=== PATIENT | female | born 1945 | race Caucasian/White ===

== ENCOUNTER → 2017-05-15 | Outpatient (CLI) | payer OTHER | END | disposition home or self-care (01) | LOC: MAMO-SONO 10:37 | DX: Z12.31 Encounter for screening mammogram for malignant neoplasm of breast (principal); Z87.898 Personal history of other specified conditions; N64.4 Mastodynia ==

== ENCOUNTER 2018-05-18 09:18 | Outpatient (CLI) | payer OTHER | END 2018-05-18 09:32 | disposition home or self-care (01) | LOC: MAMO-SONO 09:18 | DX: Z12.31 Encounter for screening mammogram for malignant neoplasm of breast (principal); Z87.898 Personal history of other specified conditions; N64.4 Mastodynia ==

== ENCOUNTER 2018-05-28 10:56 | Outpatient (CLI) | payer OTHER | END 2018-05-28 12:00 | disposition home or self-care (01) | LOC: NUCLEAR 10:56 | DX: M85.80 Other specified disorders of bone density and structure, unspecified site (principal); M81.0 Age-related osteoporosis without current pathological fracture ==

== ENCOUNTER 2019-06-04 08:45 | Outpatient (CLI) | payer OTHER | END 2019-06-04 08:58 | disposition home or self-care (01) | LOC: MAMO-SONO 08:45 | DX: Z12.31 Encounter for screening mammogram for malignant neoplasm of breast (principal); Z12.39 Encounter for other screening for malignant neoplasm of breast ==

== ENCOUNTER → 2020-06-08 | Outpatient (CLI) | payer OTHER | END | disposition home or self-care (01) | LOC: MAMO-SONO 10:15 | DX: Z12.31 Encounter for screening mammogram for malignant neoplasm of breast (principal); N64.59 Other signs and symptoms in breast; N64.4 Mastodynia ==

== ENCOUNTER 2020-07-11 06:11 | Emergency (ER) | payer OTHER ==
[~2020-07-11] VITALS: Ht 160 cm; Wt 76.2 kg
[2020-07-11] MEDS ORDERED: BENAZEPRIL 10 MG (06:48)
== END 2020-07-11 14:54 | disposition home or self-care (01) ==
LOC: ER 06:11
DX: B34.9 Viral infection, unspecified (principal); M50.323 Other cervical disc degeneration at C6-C7 level; R53.1 Weakness; Z03.818 Encounter for observation for suspected exposure to other biological agents ruled out

== ENCOUNTER → 2020-08-05 | Outpatient (CLI) | payer OTHER ==
[~2020-08-05] MED LIST: BENAZEPRIL 10 MG
== END | disposition home or self-care (01) ==
LOC: RAD 11:44
PROVIDERS: ATTEND Urology
DX: M25.511 Pain in right shoulder (principal); M25.512 Pain in left shoulder

== ENCOUNTER 2020-12-10 13:07 | Outpatient (CLI) | payer OTHER | END 2020-12-10 13:08 | disposition home or self-care (01) | LOC: NUCLEAR 13:07 | PROVIDERS: ATTEND Internal Medicine Rheumatology | DX: M81.0 Age-related osteoporosis without current pathological fracture (principal) ==

== ENCOUNTER 2021-01-11 08:50 | Outpatient (CLI) | payer OTHER | END 2021-01-11 08:59 | disposition home or self-care (01) | LOC: NUCLEAR 08:50 | PROVIDERS: ATTEND Internal Medicine Cardiovascular Disease | DX: I87.2 Venous insufficiency (chronic) (peripheral) (principal) ==

== ENCOUNTER → 2021-01-12 | Outpatient (CLI) | payer OTHER | END | disposition home or self-care (01) | LOC: NUCLEAR 09:00 | PROVIDERS: ATTEND Internal Medicine Cardiovascular Disease | DX: I73.9 Peripheral vascular disease, unspecified (principal) ==

== ENCOUNTER 2021-06-09 10:18 | Outpatient (CLI) | payer OTHER | END 2021-06-09 10:28 | disposition home or self-care (01) | LOC: MAMO-SONO 10:18 | PROVIDERS: ATTEND General Practice | DX: Z12.31 Encounter for screening mammogram for malignant neoplasm of breast (principal); N64.4 Mastodynia ==

== ENCOUNTER 2021-09-30 16:48 | Emergency (ER) | payer OTHER ==
[~2021-09-30] VITALS: Ht 160 cm; Wt 70.3 kg
[~2021-09-30 16:48] MED LIST changes: +KETO10TA2 PO; +MILLIPRED5 MG; +NORFLEX100MG PO
== END 2021-09-30 22:08 | disposition home or self-care (01) ==
LOC: ER 16:48
DX: M54.40 Lumbago with sciatica, unspecified side (principal); I10 Essential (primary) hypertension; Z88.2 Allergy status to sulfonamides; Z91.013 Allergy to seafood

== ENCOUNTER 2022-06-09 08:18 | Outpatient (CLI) | payer OTHER | END 2022-06-09 08:32 | disposition home or self-care (01) | LOC: MAMO-SONO 08:18 | PROVIDERS: ATTEND General Practice | DX: Z12.31 Encounter for screening mammogram for malignant neoplasm of breast (principal); N64.4 Mastodynia ==

== ENCOUNTER 2023-02-22 12:46 | Outpatient (CLI) | payer OTHER | END 2023-02-22 12:54 | disposition home or self-care (01) | LOC: NUCLEAR 12:46 | PROVIDERS: ATTEND Internal Medicine | DX: M81.0 Age-related osteoporosis without current pathological fracture (principal) ==

== ENCOUNTER 2023-06-12 08:38 | Outpatient (CLI) | payer OTHER | END 2023-06-12 08:44 | disposition home or self-care (01) | LOC: MAMO-SONO 08:38 | PROVIDERS: ATTEND General Practice | DX: N64.4 Mastodynia (principal); Z12.31 Encounter for screening mammogram for malignant neoplasm of breast ==

== ENCOUNTER 2024-06-19 08:26 | Outpatient (CLI) | payer OTHER | END 2024-06-19 08:34 | disposition home or self-care (01) | LOC: MAMO-SONO 08:26 | PROVIDERS: ATTEND Obstetrics & Gynecology Maternal & Fetal Medicine | DX: N63.10 Unspecified lump in the right breast, unspecified quadrant (principal); Z12.31 Encounter for screening mammogram for malignant neoplasm of breast ==